=== PATIENT | female | born 1965 | race African-American/Black ===

== ENCOUNTER 2021-07-15 11:59 | Emergency (ER) | payer BC ==
[2021-07-15 12:14] VITALS: BP 126/71; PULSE 116; TEMP 103.3; BMI 35.0
[2021-07-15] MEDS ORDERED: ACETAMINOPHEN 500 MG TABLET (FP) ONE (12:16)
[2021-07-15] MEDS ORDERED: ACETAMINOPHEN 500 MG TABLET (FP) PO ONE (12:34)
== END 2021-07-15 12:46 | disposition home or self-care (01) ==
LOC: FER 11:59
DX: U07.1 COVID-19 (principal)
CPT/HCPCS: 87804; 99283-25; C9803-CS; U0003; U0005

== ENCOUNTER 2023-09-12 19:16 | Emergency (ER) | payer BC ==
[2023-09-12 19:34] VITALS: BP 132/76; PULSE 88; RESP 16; TEMP 97.8; BMI 34.3
[2023-09-12 20:48] LABS: HEMATOCRIT 39.7 % (32.4-45.2); HEMOGLOBIN 12.9 G/dL (10.7-15.3); MCH 28.4 pg (25.7-33.7); MCHC 32.5 g/dl (32.0-36.0); MEAN CELL VOLUME 87.3 fl (80-96); MEAN PLT VOLUME 8.1 fl (7.5-11.1); PLATELET COUNT 249.3 10^3/uL (134-434); RBC 4.55 10^6/uL (3.60-5.2); RDW 14.2 % (11.6-15.6); WHITE BLOOD COUNT 10.1 10^3/uL (4.0-10.8)
[2023-09-12] MEDS: morphine CARPU-JECT 2 MG/1 ML DISP.SYRIN IVPUSH ONE (20:58)
[2023-09-12 21:07] LABS: ALBUMIN 4.4 g/dl (3.4-5.0); BILIRUBIN,TOTAL 0.4 mg/dl (0.2-1); CALCIUM 9.9 mg/dl (8.5-10.1); CREATININE 0.7 mg/dl (0.6-1.3); POTASSIUM 3.8 mmol/L (3.5-5.1); TOT PROT 8.9 g/dl (6.4-8.2)
[2023-09-12] MEDS ORDERED: ACETAMINOPHEN INJECTION 100 ML IVPB ONE (22:06)
[2023-09-12] MEDS ORDERED: predniSONE 20 MG TABLET (UD) ONE (22:06)
[2023-09-12] MEDS: ACETAMINOPHEN 1000 MG/100 ML BAG IVPB ONE (22:10)
[2023-09-12] MEDS: predniSONE 20 MG TABLET (UD) PO ONE (22:11)
== END 2023-09-12 22:47 | disposition home or self-care (01) ==
LOC: FER 19:16
PROC: 3E033NZ Introduction of Analgesics, Hypnotics, Sedatives into Peripheral Vein, Percutaneous Approach (ICD-10-PCS; principal; 2023-09-12)
PROC: 3E033GC Introduction of Other Therapeutic Substance into Peripheral Vein, Percutaneous Approach (ICD-10-PCS; 2023-09-12)
DX: M54.2 Cervicalgia (principal); R22.1 Localized swelling, mass and lump, neck; R51.9 Headache, unspecified
CPT/HCPCS: 36415; 70490-TC; 80053; 85027; 85651; 86140; 99284-25; J0131